=== PATIENT | female | born 1950 | race Caucasian/White ===

== ENCOUNTER 2021-07-18 06:54 | Day surgery (SDC) | payer OTHER ==
[~2021-07-18] VITALS: Ht 157.5 cm; Wt 77.1 kg
[~2021-07-18 06:54] MED LIST: ASPI1TAB37 PO; LOSA-69 PO; METO-289 PO; PRAV20TA3 PO; TRIA50TA2 PO
[2021-07-18] MEDS ORDERED: IODIXANOL 320MG/ML 100ML BTL IV ONE (07:58)
[2021-07-18] MEDS ORDERED: LIDOCAINE 2%HCL (LOCAL ANESTH.) INJ 20ML MDV ONE (07:58)
[2021-07-18] MEDS ORDERED: fentaNYL CITRATE 100 MCG/2 ML VL ONE (08:22)
[2021-07-18] MEDS ORDERED: MIDAZOLAM HCL 2MG/2ML 2ml VIAL (1mg/ml) ONE (08:22)
[2021-07-18] MEDS ORDERED: VERAPAMIL 2.5MG/ML INJ 2ML VIAL IV ONE (08:23)
[2021-07-18] MEDS ORDERED: SODIUM CHL 0.9% 0 ML ONE (08:26)
[2021-07-18] MEDS ORDERED: ANGIOMAX 250 MG VIAL IV ONE (08:26)
[2021-07-18] MEDS ORDERED: HEPARIN SODIUM (PORCINE) 5000 UNITS/ML 1ML VIAL ONE (08:26)
[2021-07-18] MEDS ORDERED: HYDROcodone-ACET 5/325MG TAB PO PRN (09:00)
[2021-07-18] MEDS ORDERED: ONDANSETRON HCL 4 MG/2 ML VIAL IV PRN (09:00)
[2021-07-18] MEDS ORDERED: ACETAMINOPHEN 500 MG TAB PO PRN (09:00)
== END 2021-07-18 11:31 | disposition home or self-care (01) ==
LOC: CATH 06:54
PROVIDERS: ATTEND Internal Medicine
DX: R94.39 Abnormal result of other cardiovascular function study (principal); I25.118 Atherosclerotic heart disease of native coronary artery with other forms of angina pectoris; I10 Essential (primary) hypertension; F17.210 Nicotine dependence, cigarettes, uncomplicated; E78.00 Pure hypercholesterolemia, unspecified; Z88.0 Allergy status to penicillin; Z82.49 Family history of ischemic heart disease and other diseases of the circulatory system; Z20.822 Contact with and (suspected) exposure to COVID-19; Z98.890 Other specified postprocedural states; Z79.899 Other long term (current) drug therapy
CPT/HCPCS: 93454; C1887; C1894; J1644; J2250; J3010; Q9967; U0003; 99152